=== PATIENT | male | born 1960 | race Caucasian/White ===

== ENCOUNTER 2016-10-10 14:18 | Observation (INO) | payer MEDICARE, OTHER ==
[~2016-10-10] VITALS: Ht 170.2 cm; Wt 77.0 kg
[2016-10-10] VITALS (7 sets, daily range): BP systolic 78–95; BP diastolic 49–63; PULSE 70–86; RESP 16–18; TEMP 98.3; O2SAT 94–97
[2016-10-10] MEDS ORDERED: SODIUM CHLOR 0.9% 1000 ML INJ 1,000 ML IV SCH (15:50)
--- NOTE | 2016-10-10 15:54 | PD ---
HPI Chief Complaint: Fall Time Seen by Provider: 15:50 Travel History International Travel<30 days: No Contact w/Intl Traveler<30days: No Traveled to known affect area: No History of Present Illness HPI 56-year-old male with history of remote CVA, TBI, hypertension, diabetes, left BKA, remote history of IV drug abuse, presents to the emergency department today for evaluation of a near syncopal episode. Agent states this morning he forgot to put the "wheelie bar" on the back of his wheelchair when he will lean back, the chair fell backwards and he struck his head. He did not lose consciousness. Since then throughout the day he has had a headache with intermittent dizziness. He went to lunch and had two beers. Following lunch when he went to the gas station, he states that he became very faint, he states he could hardly stay standing. States now he "just doesn't feel right." Denies any chest pain or tightness. No difficulty breathing. Patient states he has taken all of his medications this morning. He has no other symptoms to report. PFSH Past Medical History Anxiety: Yes Depression: Yes Cardiac Catheterization: Yes Cerebrovascular Accident: Yes Diabetes: Yes Patient Takes Glucophage: Yes Hypertension: Yes Neurologic: Yes (brain injury) ?: Not Social History Alcohol Use: Yes Tobacco Use: No Substance Use: Yes (former iv drug user) Allergies-Medications (Allergen,Severity, Reaction): Coded Allergies: atorvastatin (Verified Allergy, Severe, 10/10/16) Reported Meds & Prescriptions Reported Meds & Active Scripts Active Reported Hydralazine (Hydralazine HCl) 100 Mg Tab 100 Mg PO BID Take with meals Amlodipine (Amlodipine Besylate) 5 Mg Tab 5 Mg PO DAILY Ranitidine (Ranitidine HCl) 150 Mg Tab 150 Mg PO HS Metformin (Metformin HCl) 850 Mg Tab 850 Mg PO BIDPC With meals Gemfibrozil 600 Mg Tab 600 Mg PO BIDAC Take 30 minutes prior to breakfast and dinner. Atenolol 25 Mg Tab 25 Mg PO BID Lantus Inj (Insulin Glargine) 1,000 Unit/10 Ml Vial 60 Units SQ HS Gabapentin 600 Mg Tab 600 Mg PO TID Amitriptyline (Amitriptyline HCl) 50 Mg Tab 50 Mg PO HS Fluoxetine (Fluoxetine HCl) 40 Mg Cap 40 Cap PO DAILY Pravastatin 40 Mg Tab 40 Mg PO DAILY Percocet (Oxycodone-Acetaminophen) 7.5-325 mg Tab 1 Tab PO Q6H PRN Xanax (Alprazolam) 0.5 Mg Tab 0.5 Mg PO Q4H PRN Trazodone (Trazodone HCl) 100 Mg Tablet 100 Mg PO HS Wellbutrin SR 12 HR (Bupropion HCl) 150 Mg Tab 150 Mg PO Q12HR Review of Systems Except as stated in HPI: all other systems reviewed are Neg Physical Exam Narrative GENERAL: Well-nourished male patient, no acute distress. SKIN: Focused skin assessment warm/dry.. Oral erythema, dryness HEAD: Atraumatic. Normocephalic. EYES: Pupils equal and round. No scleral icterus. No injection or drainage. ENT: No nasal bleeding or discharge. Mucous membranes pink and moist. NECK: Trachea midline. No JVD. CARDIOVASCULAR: Regular rate and rhythm. No murmur appreciated. RESPIRATORY: No accessory muscle use. Clear to auscultation. Breath sounds equal bilaterally. GASTROINTESTINAL: Abdomen soft, non-tender, nondistended. Hepatic and splenic margins not palpable. MUSCULOSKELETAL: No obvious deformities. No clubbing. No cyanosis. No edema. Left BKA NEUROLOGICAL: Arousable to awake; oriented x 3 No obvious cranial nerve deficits. Motor grossly within normal limits. Normal speech. Data Data Last Documented VS Vital Signs Date Time Temp Pulse Resp B/P (MAP) Pulse Ox O2 Delivery O2 Flow Rate FiO2 10/10/16 19:06 71 18 95/56 (69) 96 Room Air 10/10/16 14:20 98.3 Orders Orders Electrocardiogram (10/10/16 15:50) Basic Metabolic Panel (Bmp) (10/10/16 15:50) Complete Blood Count With Diff (10/10/16 15:50) Creatine Kinase (Cpk) (10/10/16 15:50) Prothrombin Time / Inr (Pt) (10/10/16 15:50) Act Partial Throm Time (Ptt) (10/10/16 15:50) Troponin I (10/10/16 15:50) Ct Brain W/O Iv Contrast(Rout) (10/10/16 15:50) Blood Glucose (10/10/16 15:50) Ecg Monitoring (10/10/16 15:50) Iv Access Insert/Monitor (10/10/16 15:50) Oximetry (10/10/16 15:50) Sodium Chloride 0.9% Flush (Ns Flush) (10/10/16 16:00) Sodium Chlor 0.9% 1000 Ml Inj (Ns 1000 M (10/10/16 15:50) Drug Screen, Random Urine (10/10/16 15:50) Alcohol (Ethanol) (10/10/16 15:50) Ct Cerv Spine W/O Contrast (10/10/16 ) Sodium Chlor 0.9% 1000 Ml Inj (Ns 1000 M (10/10/16 17:45) Orthostatic Vital Signs (10/10/16 17:38) Sodium Chlor 0.9% 1000 Ml Inj (Ns 1000 M (10/10/16 18:00) Chest, Single Ap (10/10/16 ) Urinalysis - C+S If Indicated (10/10/16 17:51) Blood Culture (10/10/16 17:51) Lactic Acid Sepsis Protocol (10/10/16 17:51) Troponin I (10/10/16 18:36) Electrocardiogram (10/10/16 ) D-Dimer (10/10/16 19:00) Admit Order (Ed Use Only) (10/10/16 20:16) Labs Laboratory Tests Test 10/10/16 15:45 10/10/16 18:15 10/10/16 18:20 10/10/16 20:00 White Blood Count 8.8 TH/MM3 Red Blood Count 5.30 MIL/MM3 Hemoglobin 12.8 GM/DL Hematocrit 39.7 % Mean Corpuscular Volume 75.0 FL Mean Corpuscular Hemoglobin 24.1 PG Mean Corpuscular Hemoglobin Concent 32.1 % Red Cell Distribution Width 16.3 % Platelet Count 420 TH/MM3 Mean Platelet Volume 7.3 FL Neutrophils (%) (Auto) 68.6 % Lymphocytes (%) (Auto) 21.2 % Monocytes (%) (Auto) 6.2 % Eosinophils (%) (Auto) 3.5 % Basophils (%) (Auto) 0.5 % Neutrophils # (Auto) 6.0 TH/MM3 Lymphocytes # (Auto) 1.9 TH/MM3 Monocytes # (Auto) 0.5 TH/MM3 Eosinophils # (Auto) 0.3 TH/MM3 Basophils # (Auto) 0.0 TH/MM3 CBC Comment DIFF FINAL Differential Comment Prothrombin Time 10.4 SEC Prothromb Time International Ratio 0.9 RATIO Activated Partial Thromboplast Time 26.0 SEC Blood Urea Nitrogen 14 MG/DL Creatinine 1.80 MG/DL Random Glucose 141 MG/DL Calcium Level 9.1 MG/DL Sodium Level 135 MEQ/L Potassium Level 4.6 MEQ/L Chloride Level 102 MEQ/L Carbon Dioxide Level 20.1 MEQ/L Anion Gap 13 MEQ/L Estimat Glomerular Filtration Rate 40 ML/MIN Total Creatine Kinase 96 U/L Troponin I LESS THAN 0.02 NG/ML LESS THAN 0.02 NG/ML Ethyl Alcohol Level 3 MG/DL Lactic Acid Level 1.9 mmol/L Urine Color YELLOW Urine Turbidity CLEAR Urine pH 6.0 Urine Specific [place] 1.011 Urine Protein TRACE mg/dL Urine Glucose (UA) 70 mg/dL Urine Ketones NEG mg/dL Urine Occult Blood NEG Urine Nitrite NEG Urine Bilirubin NEG Urine Urobilinogen LESS THAN 2.0 MG/DL Urine Leukocyte Esterase NEG Urine WBC 2 /hpf Microscopic Urinalysis Comment CULT NOT INDICATED Urine Opiates Screen POS Urine Barbiturates Screen NEG Urine Amphetamines Screen NEG Urine Benzodiazepines Screen POS Urine Cocaine Screen NEG Urine Cannabinoids Screen NEG D-Dimer Quantitative (PE/DVT) LESS THAN 0.19 MG/L FEU [facility] Medical Decision Making Medical Screen Exam Complete: Yes Emergency Medical Condition: Yes Medical Record Reviewed: Yes Differential Diagnosis Polypharmacy versus medication side effect versus electrolyte abnormality versus dehydration versus intoxication versus sepsis Narrative Course 56-year-old male presents to the emergency department for evaluation. Patient appears without distress. He is slightly delayed in his answers and appears lethargic, states that he is weak. He is hypotensive here in the emergency department. Lab work and IV normal saline bolus or order. CT imaging of the brain and cervical spine without acute abnormality. Laboratory Tests Test 10/10/16 15:45 10/10/16 18:15 10/10/16 18:20 10/10/16 20:00 White Blood Count 8.8 TH/MM3 Red Blood Count 5.30 MIL/MM3 Hemoglobin 12.8 GM/DL Hematocrit 39.7 % Mean Corpuscular Volume 75.0 FL Mean Corpuscular Hemoglobin 24.1 PG Mean Corpuscular Hemoglobin Concent 32.1 % Red Cell Distribution Width 16.3 % Platelet Count 420 TH/MM3 Mean Platelet Volume 7.3 FL Neutrophils (%) (Auto) 68.6 % Lymphocytes (%) (Auto) 21.2 % Monocytes (%) (Auto) 6.2 % Eosinophils (%) (Auto) 3.5 % Basophils (%) (Auto) 0.5 % Neutrophils # (Auto) 6.0 TH/MM3 Lymphocytes # (Auto) 1.9 TH/MM3 Monocytes # (Auto) 0.5 TH/MM3 Eosinophils # (Auto) 0.3 TH/MM3 Basophils # (Auto) 0.0 TH/MM3 CBC Comment DIFF FINAL Differential Comment Prothrombin Time 10.4 SEC Prothromb Time International Ratio 0.9 RATIO Activated Partial Thromboplast Time 26.0 SEC Blood Urea Nitrogen 14 MG/DL Creatinine 1.80 MG/DL Random Glucose 141 MG/DL Calcium Level 9.1 MG/DL Sodium Level 135 MEQ/L Potassium Level 4.6 MEQ/L Chloride Level 102 MEQ/L Carbon Dioxide Level 20.1 MEQ/L Anion Gap 13 MEQ/L Estimat Glomerular Filtration Rate 40 ML/MIN Total Creatine Kinase 96 U/L Ethyl Alcohol Level 3 MG/DL Lactic Acid Level 1.9 mmol/L Urine Color YELLOW Urine Turbidity CLEAR Urine pH 6.0 Urine Specific [place] 1.011 Urine Protein TRACE mg/dL Urine Glucose (UA) 70 mg/dL Urine Ketones NEG mg/dL Urine Occult Blood NEG Urine Nitrite NEG Urine Bilirubin NEG Urine Urobilinogen LESS THAN 2.0 MG/DL Urine Leukocyte Esterase NEG Urine WBC 2 /hpf Microscopic Urinalysis Comment CULT NOT INDICATED Urine Opiates Screen POS Urine Barbiturates Screen NEG Urine Amphetamines Screen NEG Urine Benzodiazepines Screen POS Urine Cocaine Screen NEG Urine Cannabinoids Screen NEG D-Dimer Quantitative (PE/DVT) LESS THAN 0.19 MG/L FEU Troponin I LESS THAN 0.02 NG/ML Patient has been given 3 L normal saline bolus and remains hypotensive. I have discussed with my attending who recommends ddimer for possible PE and admission to medicine. I have discussed the patient with Dr. Loyd who will admit the patient at this time. Diagnosis Primary Impression: Near syncope Additional Impressions: Hypotension Qualified Codes: I95.9 - Hypotension, unspecified Generalized weakness Admitting Information Admitting Physician Requests: Observation Condition: Stable Mandy Gonzalez JAMA Oct 10, 2016 15:54
[2016-10-10] MEDS ORDERED: SODIUM CHLORIDE 0.9% FLUSH 5 ML FLUSH IV FLUSH PRN (16:00)
[2016-10-10 16:28] LABS: BASOPHIL % 0.5 % (0.0-2.0); EOSINOPHIL # 0.3 TH/MM3 (0-0.4); EOSINOPHIL % 3.5 % (0.0-4.0); HEMATOCRIT 39.7 % (39.0-51.0); HEMO FLAGS DIFF FINAL; LYMPH % 21.2 % (9.0-44.0); LYMPHOCYTE # 1.9 TH/MM3 (1.0-4.8); MEAN CORPUSCULAR HEMOGLOBIN 24.1 PG (27.0-34.0); MEAN CORPUSCULAR HGB CONC 32.1 % (32.0-36.0); MONO % 6.2 % (0.0-8.0); NEUT % 68.6 % (16.0-70.0); PLATELET COUNT 420 TH/MM3 (150-450); RED CELL DISTRIBUTION WIDTH 16.3 % (11.6-17.2); WHITE BLOOD COUNT 8.8 TH/MM3 (4.0-11.0)
[2016-10-10 16:43] LABS: INTERNATIONAL NORMALIZED RATIO 0.9 RATIO; PROTHROMBIN TIME - PATIENT 10.4 SEC (9.8-11.6)
[2016-10-10 16:52] LABS: ANION GAP 13 MEQ/L (5-15); BICARBONATE 20.1 MEQ/L (21.0-32.0); BLOOD UREA NITROGEN 14 MG/DL (7-18); CHLORIDE 102 MEQ/L (98-107); GLOMERULAR FILTRATION RATE 40 ML/MIN (>89); POTASSIUM 4.6 MEQ/L (3.5-5.1); SODIUM (NA) 135 MEQ/L (136-145)
--- NOTE | 2016-10-10 16:54 | RADRPT ---
EXAM DATE/TIME: 10/10/2016 16:38 [facility] COMPARISON: No previous studies available for comparison. INDICATIONS : Patient fell twice today hit head . RADIATION DOSE: 34.52 CTDIvol (mGy) MEDICAL HISTORY : Hypertension. SURGICAL HISTORY : None. ENCOUNTER: Initial ACUITY: 1 day PAIN SCALE: 5/10 LOCATION: Bilateral cranial TECHNIQUE: Multiple contiguous axial images were obtained of the head. Using automated exposure control and adj ustment of the mA and/or kV according to patient size, radiation dose was kept as low as reasonably a chievable to obtain optimal diagnostic quality images. DICOM format image data is available electro nically for review and comparison. FINDINGS: Remote right parietal and temporal infarcts with encephalomalacia. No signs of acute infarct, hemorrh age or mass. No fractures. CONCLUSION: No acute disease. Tera Ordonez MD on October 10, 2016 at 16:52 Board Certified Radiologist. This report was verified electronically.
[2016-10-10 17:00] LABS: ALCOHOL 3 MG/DL (0-5); CREATINE KINASE 96 U/L (39-308)
--- NOTE | 2016-10-10 17:26 | RADRPT ---
EXAM DATE/TIME: 10/10/2016 16:38 [facility] COMPARISON: No previous studies available for comparison. INDICATIONS : Patient fell and hit head two times today. RADIATION DOSE: 20.11 CTDIvol (mGy) MEDICAL HISTORY : Hypertension. SURGICAL HISTORY : None. ENCOUNTER: Initial ACUITY: 1 day PAIN SCALE: 6/10 LOCATION: Bilateral cranial TECHNIQUE: Volumetric scanning of the cervical spine was performed. Multiplanar reconstructions in the sagittal, coronal and oblique axial planes were performed. Using automated exposure control and adjustment o f the mA and/or kV according to patient size, radiation dose was kept as low as reasonably achievable to obtain optimal diagnostic quality images. DICOM format image data is available electronically f or review and comparison. FINDINGS: VERTEBRAE: Normal vertebral body height. ALIGNMENT: No evidence of subluxation. Calcified plaque involving the carotid arteries bilaterally. C2-C3: The bony spinal canal is normal in size. No evidence of disc bulge or herniation. Bony uncovertebra l hypertrophy asymmetric on the right. This generates right neural foraminal narrowing. The left is p atent. C3-C4: Disc space narrowing and broad-based disc bulge without abutment of the cord or central canal stenosi s. Bony uncovertebral hypertrophy generates narrowing of the lateral recesses and neural foramina genet aterally. C4-C5: A broad-based disc bulge without abutment of the cord or central canal stenosis. Neural foramina and lateral recesses are patent. C5-C6: A broad-based disc bulge without abutment of the cord or central canal stenosis. Neural foramina and lateral recesses are patent. C6-C7: The bony spinal canal is normal in size. No evidence of disc bulge or herniation. The neural forami na are bilaterally patent. C7-T1: The bony spinal canal is normal in size. No evidence of disc bulge or herniation. The neural forami na are bilaterally patent. CONCLUSION: 1. No fracture or dislocation. 2. Degenerative changes. 3. Calcified plaque involving the carotid arteries bilaterally. Peter Palencia Jr., MD on October 10, 2016 at 17:18 Board Certified Radiologist. This report was verified electronically.
[2016-10-10] MEDS ORDERED: SODIUM CHLOR 0.9% 1000 ML INJ 1,000 ML IV ONE ×2 (17:45→18:00)
--- NOTE | 2016-10-10 18:05 | RADRPT ---
EXAM DATE/TIME: 10/10/2016 18:05 [facility] COMPARISON: No previous studies available for comparison. INDICATIONS : Fall, short of breath. MEDICAL HISTORY : None. SURGICAL HISTORY : None. ENCOUNTER: Initial ACUITY: 1 day PAIN SCORE: 0/10 LOCATION: Bilateral chest FINDINGS: A single view of the chest demonstrates the lungs to be symmetrically aerated without evidence of mas s, infiltrate or effusion. The cardiomediastinal contours are unremarkable. Osseous structures are intact. CONCLUSION: No acute disease. Tera Ordonez MD on October 10, 2016 at 18:04 Board Certified Radiologist. This report was verified electronically.
[2016-10-10 19:06] LABS: BLOOD, URINE NEG (NEG); COMMENT (UR) CULT NOT INDICATED; CULTURE IF INDICATED CULT NOT INDICATED; GLUCOSE,URINE 70 mg/dL (NEG); KETONE, URINE NEG (NEG); NITRITE,URINE NEG (NEG); URINE COLOR YELLOW (YELLW/STRAW)
[2016-10-10] MEDS ORDERED: HYDR-3801 PO (19:28)
[2016-10-10] MEDS ORDERED: AMLO5TAB2 PO (19:28)
[2016-10-10] MEDS ORDERED: GABA600T PO (19:28)
[2016-10-10] MEDS ORDERED: RANI150T PO (19:28)
[2016-10-10] MEDS ORDERED: GEMF600T PO (19:28)
[2016-10-10] MEDS ORDERED: PRAV40TA2 PO (19:28)
[2016-10-10] MEDS ORDERED: TRAZ100T6 PO (19:28)
[2016-10-10] MEDS ORDERED: FLUO40CA PO (19:28)
[2016-10-10] MEDS ORDERED: ALPR.5 PO (19:28)
[2016-10-10] MEDS ORDERED: BUPR150CR PO (19:28)
[2016-10-10] MEDS ORDERED: LANTUS2P SQ (19:28)
[2016-10-10] MEDS ORDERED: AMIT50TA3 PO (19:28)
[2016-10-10] MEDS ORDERED: METF850T PO (19:28)
[2016-10-10] MEDS ORDERED: PERC7.5T13 PO (19:28)
[2016-10-10] MEDS ORDERED: ATEN25TA PO (19:28)
[2016-10-10] MEDS ORDERED: SODIUM CHLORIDE 0.9% FLUSH 10 ML FLUSH IV FLUSH PRN (20:30)
[2016-10-10] MEDS ORDERED: NALOXONE HCL 0.4 MG/ML AMP IV PRN (20:30)
[2016-10-10] MEDS: SODIUM CHLORIDE 0.9% FLUSH 10 ML FLUSH IV FLUSH SCH (21:00)
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
[2016-10-10] MEDS ORDERED: oxyCODONE/ACETAMINOPHEN 10 MG/325 MG TAB PO ONE (23:45)
[2016-10-11] VITALS (8 sets, daily range): BP systolic 94–140; BP diastolic 53–79; PULSE 72–88; RESP 18–20; TEMP 97.8–98.5; O2SAT 95–98
[2016-10-11] MEDS ORDERED: oxyCODONE/ACETAMINOPHEN 7.5 MG/325 MG TAB PO PRN
[2016-10-11] MEDS ORDERED: GLUCAGON 1 MG/ML VIAL OTHER PRN
[2016-10-11] MEDS ORDERED: ALPRAZolam 0.5 MG TAB PO PRN
[2016-10-11] MEDS ORDERED: DEXTROSE 50% IN WATER 50 ML VIAL(D50) IV PRN
[2016-10-11 02:03] LABS: AUTOMATED NEUTROPHIL # 3.9 TH/MM3 (1.8-7.7); BASOPHIL % 0.3 % (0.0-2.0); EOSINOPHIL # 0.3 TH/MM3 (0-0.4); EOSINOPHIL % 5.2 % (0.0-4.0); HEMATOCRIT 35.2 % (39.0-51.0); HEMO FLAGS DIFF FINAL; LYMPH % 22.1 % (9.0-44.0); LYMPHOCYTE # 1.3 TH/MM3 (1.0-4.8); MEAN CELL VOLUME 74.9 FL (80.0-100.0); MEAN CORPUSCULAR HEMOGLOBIN 24.4 PG (27.0-34.0); MEAN CORPUSCULAR HGB CONC 32.6 % (32.0-36.0); MONO % 6.4 % (0.0-8.0); PLATELET COUNT 339 TH/MM3 (150-450); RED CELL DISTRIBUTION WIDTH 16.3 % (11.6-17.2); WHITE BLOOD COUNT 5.9 TH/MM3 (4.0-11.0)
[2016-10-11 02:08] LABS: BICARBONATE 24.1 MEQ/L (21.0-32.0)
[2016-10-11 02:14] LABS: CREATINE KINASE 98 U/L (39-308)
[2016-10-11] MEDS: INSULIN ASPART SUPPLEMENTAL SCALE SQ SCH ×2 (06:36→13:18)
[2016-10-11] MEDS ORDERED: GEMFIBROZIL 600 MG TAB PO SCH (07:00)
[2016-10-11] MEDS ORDERED: buPROPion HCL 150 MG SUSTAINED RELEASE TAB PO SCH (09:00)
[2016-10-11] MEDS ORDERED: PRAVASTATIN SOD 40 MG TAB PO SCH (09:00)
[2016-10-11] MEDS ORDERED: FLUoxetine HCL 20 MG CAP PO SCH (09:00)
[2016-10-11] MEDS: SODIUM CHLORIDE 0.9% FLUSH 10 ML FLUSH IV FLUSH SCH (09:21)
--- NOTE | 2016-10-11 10:05 | HHI.PR ---
Subjective Remarks Follow-up of orthostatic dizziness. The patient states that yesterday he got out of his car to pump gas, felt dizzy and shaky, and then fell to the ground. He denies any loss of consciousness. He was noted to be orthostatic earlier today, denies any prior history of this. He states whenever he got out of bed to do orthostatics, the dizziness had improved. He was started on amitriptyline and Cymbalta a few weeks ago for nerve pain. He did lose nearly 100 pounds intentionally over the past few months. He's feeling well today and is asking to go home. He states that he is intermittently compliant with his diabetes medications. He states he's mostly compliant with his blood pressure medications because he was recently in the hospital for uncontrolled high blood pressure. Objective Vitals Vital Signs Date Time Temp Pulse Resp B/P (MAP) Pulse Ox O2 Delivery O2 Flow Rate FiO2 10/11/16 09:14 Room Air 10/11/16 09:14 97.8 88 18 129/76 (93) 120/65 (83) 110/61 (77) 10/11/16 07:40 77 10/11/16 05:21 98.0 74 20 102/61 (75) 95 10/11/16 04:00 72 10/11/16 01:07 84 10/11/16 01:06 98.2 80 20 94/53 (67) 97 10/10/16 19:06 71 18 95/56 (69) 96 Room Air 10/10/16 18:31 72 16 89/60 (70) 97 Room Air 10/10/16 18:15 70 16 86/54 (65) 94 Room Air 10/10/16 17:05 74 18 81/52 (62) 97 Room Air 10/10/16 15:52 78 18 91/63 (72) 96 Room Air 10/10/16 15:11 81 78/49 (59) 10/10/16 14:20 98.3 86 18 96 Room Air I/O 10/10/16 10/10/16 10/10/16 10/11/16 10/11/16 10/11/16 07:00 15:00 23:00 07:00 15:00 23:00 Intake Total 3000 ml Balance 3000 ml Intake IV Total 3000 ml Result Diagram: 10/11/16 0140 10/11/16 0140 Imaging Last Impressions Head CT 10/10/16 1550 Signed Impressions: Service Date/Time: Monday, October 10, 2016 16:38 - CONCLUSION: No acute disease. Tera Ordonez MD Chest X-Ray 10/10/16 0000 Signed Impressions: Service Date/Time: Monday, October 10, 2016 18:05 - CONCLUSION: No acute disease. Tera Ordonez MD Cervical Spine CT 10/10/16 0000 Signed Impressions: Service Date/Time: Monday, October 10, 2016 16:38 - CONCLUSION: 1. No fracture or dislocation. 2. Degenerative changes. 3. Calcified plaque involving the carotid arteries bilaterally. Peter Palencia Jr., MD Objective Remarks GENERAL: Well-developed well-nourished. In no acute distress. SKIN: Warm and dry. No lesions noted. HEENT: Normocephalic. Pupils equal and round. Mucous membranes pink and moist. CARDIOVASCULAR: Regular rate and rhythm. No murmur appreciated. RESPIRATORY: No accessory muscle use. Clear to auscultation. Breath sounds equal bilaterally. GASTROINTESTINAL: Abdomen soft, non-tender, nondistended. Bowel sounds x4. MUSCULOSKELETAL: Left BKA. No clubbing or cyanosis. No edema. NEUROLOGICAL: Awake and alert. No focal neurological deficits. Moves upper and lower extremities spontaneously. Normal speech. PSYCHIATRIC: Appropriate mood and affect; insight and judgment normal. A/P Problem List: (1) Symptomatic hypotension ICD Code: I95.89 - Other hypotension Status: Acute (2) Type 2 diabetes mellitus ICD Code: E11.9 - Type 2 diabetes mellitus without complications Status: Chronic (3) Chronic pain ICD Code: G89.29 - Other chronic pain Status: Chronic Assessment and Plan 56-year-old male with past medical history of HTN, DM, CAD, asthma, chronic pain who presented for orthostatic dizziness and near syncope Near syncope, Symptomatic Hypotension, with fall: Suspect symptoms secondary to dehydration, over controlled BP, and orthostasis. The patient complains of feeling dizzy and shaky after getting out of his car to pump gas. Likely due to over controlled blood pressure, BP 78/49 upon ED presentation. Also found to have orthostatic hypotension. NILDA as below. Reviewed: Unremarkable serial cardiac enzymes and EKGs. Head CT with no acute process. C-spine CT head with no acute process. D-dimer within normal limits. Labs with signs of dehydration. Troponin negative 3. - neuro checks q4h - continuous cardiac telemetry to monitor for cardiac arrhythmia - Carotid ultrasound and echocardiogram ordered. - Symptoms are likely secondary to medication effect; on multiple medications that could be causing orthostatic hypotension as well as multiple BP medications - Holding BP medications for now; adjust doses as indicated. Patient instructed to take amlodipine as needed for persistently high BP at home. Type 2 Diabetes Mellitus: Patient reports this is poorly controlled secondary to dietary and medication noncompliance. Currently well controlled here. - Accu-Cheks before meals and at bedtime with medium-dose NovoLog sliding scale coverage - Continue home Levemir - Hypoglycemia protocol - Monitor trends and blood glucose readings and adjust treatments as indicated Chronic Pain -Continue home gabapentin, amitriptyline, Percocet -Caution with medication effect NILDA: Admission creatinine 1.8, sodium 135, bicarbonate 20. Sodium, creatinine, and bicarbonate improved to normal limits with IVF. Symptoms secondary to dehydration which likely contributed to near syncope as above. -Creatinine improved to 1.17 with IVF, Resolved DVT prophylaxis: Heparin Discharge Planning Symptoms have improved with improvement in BP today. Possible discharge later today or tomorrow when BP meds are optimized. Elliot Ashraf Oct 11, 2016 10:05
[2016-10-11 10:59] LABS: CREATINE KINASE 73 U/L (39-308)
--- NOTE | 2016-10-11 12:14 | RADRPT ---
EXAM DATE/TIME: 10/11/2016 10:27 [facility] COMPARISON: No previous studies available for comparison. INDICATIONS : Syncope. MEDICAL HISTORY : Hypertension. SURGICAL HISTORY : None. ENCOUNTER: Initial ACUITY: 1 day PAIN SCORE: 10/10 LOCATION: Bilateral neck PEAK SYSTOLIC VELOCITIES (cm/sec): ICA/CCA RATIO: Right: 1.0 Left: 0.6 ICA: Right: 102 Left: 105 CCA: Right: 103 Left: 164 ECA: Right: 115 Left: 122 VERTEBRAL: Right: 52 antegrade Left: 67 antegrade Elevated flow velocities and ICA/CCA ratios have been found to correlate with increased degrees of vessel stenosis, calculated as percentage of diameter relative to a normal segment of distal ICA/CCA FINDINGS: RIGHT CAROTID: No significant stenosis is visualized. The waveforms are within normal limits. LEFT CAROTID: No significant stenosis is visualized. The waveforms are within normal limits. VERTEBRAL ARTERIES: Antegrade flow is seen in both vertebral arteries. MISCELLANEOUS: None. CONCLUSION: 1. No evidence for hemodynamically significant stenosis. Tera Ordoenz MD on October 11, 2016 at 12:12 Board Certified Radiologist. This report was verified electronically.
[2016-10-11] MEDS ORDERED: GABAPENTIN 300 MG CAP PO SCH (18:00)
--- NOTE | 2016-10-11 19:35 | EKG ---
Date Performed: 10/11/2016 Time Performed: 05:44:52 PTAGE: 56 years EKG: Sinus rhythm Compared to prior tracing no significant change DOCTOR: Sonya Vu Interpretating Date/Time 10/11/2016 19:33:19
--- NOTE | 2016-10-11 19:48 | EKG ---
Date Performed: 10/10/2016 Time Performed: 19:33:11 PTAGE: 56 years EKG: Sinus rhythm NORMAL ECG PREVIOUS TRACING : 10/10/2016 16.00 Compared to prior tracing no significant change DOCTOR: Sonya Vu Interpretating Date/Time 10/11/2016 19:47:07
--- NOTE | 2016-10-11 19:55 | EKG ---
Date Performed: 10/10/2016 Time Performed: 16:00:03 PTAGE: 56 years EKG: Sinus rhythm NORMAL ECG NO PREVIOUS TRACING DOCTOR: Sonya Vu Interpretating Date/Time 10/12/2016 06:55:12
[2016-10-11] MEDS ORDERED: HEPARIN SODIUM - SQ 10,000 UNITS/ML VIAL SQ SCH (21:00)
[2016-10-11] MEDS ORDERED: FAMOTIDINE 20 MG TAB PO SCH (21:00)
[2016-10-11] MEDS ORDERED: INSULIN DETEMIR 100 UNITS/ML VIAL SQ SCH (21:00)
[2016-10-11] MEDS ORDERED: traZODone HCL 100 MG TAB PO SCH (21:00)
[2016-10-11] MEDS ORDERED: AMITRIPTYLINE HCL 50 MG TAB PO SCH (21:00)
== END 2016-10-11 14:05 | disposition home or self-care (01) ==
LOC: NEPE 14:18 → NEDA 20:18 → NEPHCDU 10-11 00:44
PROVIDERS: ADMIT Hospitalist; ATTEND Hospitalist
DX: I95.89 Other hypotension (principal); I11.0 Hypertensive heart disease with heart failure; E11.9 Type 2 diabetes mellitus without complications; I25.10 Atherosclerotic heart disease of native coronary artery without angina pectoris; G89.29 Other chronic pain; E86.0 Dehydration; N17.9 Acute kidney failure, unspecified; Z86.73 Personal history of transient ischemic attack (TIA), and cerebral infarction without residual deficits; Z91.11 Patient's noncompliance with dietary regimen; Z95.5 Presence of coronary angioplasty implant and graft; Z89.512 Acquired absence of left leg below knee; W19.XXXA Unspecified fall, initial encounter
CPT/HCPCS: 70450; 71010; 72125; 80048; 80307; 81001; 82550; 82948; 83605; 84484; 85025; 85379; 85610; 85730; 87040; 87641; 93005; 93880; 96360; 96361; 96372; 99285; G0378; J1815; J7030